=== PATIENT | male | born 1990 | race Caucasian/White ===

== ENCOUNTER 2017-10-28 14:15 | Emergency (ER) ==
[2017-10-28 15:24] VITALS: BP 136/95; TEMP 98.3; BMI 29.4
--- NOTE | 2017-10-28 15:31 | ED.PDOC ---
General ED Provider: Dr. CHINMAY WAYNE Chief Complaint: Alcohol/Substance Withdrawal Stated Complaint: Going through withdrawl from Clonazepam and Lorazepam. Is from [place] and is working for [employer] and [employer] -currently in [place] / Was close to running out and from [place] refused to refill over phone and due to. missing apt released him from her care. States has been on Suboxone program as well. States on day 6 of withdrawl but found a street lorazepam tablet to take. Had been on CLonazepam 2 mg bid and alprazolam 1 mg at HS. Wanting get into psychiatrist office to be placed on a tapering dose of Meds/ Time Seen by Physician: 15:00 Mode of Arrival: Walk-In Information Source: Patient Exam Limitations: No limitations Nursing and Triage Documentation Reviewed and Agree: Yes Does patient meet sepsis criteria?: No System Inflammatory Response Syndrome: Not Applicable Sepsis Protocol: For patient's 13 years and over: Temp is 96.8 and below OR 101 and greater Pulse >90 BPM Resp >20/minute Acutely Altered Mental Status Are patient's symptoms suggestive of a new infection, such as: -Pneumonia -Skin, Soft Tissue -Endocarditis -UTI -Bone, Joint Infection -Implantable Device -Acute Abdominal Infection -Wound Infection -Meningitis -Blood Stream Catheter Infection -Unknown Psychological Complaint Exam - Psychiatric Complaint/Exam Patient Complains Of: Present: Other (anxiety) Symptoms Are: Still present Timing: Intermittent Episodes Lasting: Hours (several) Initial Severity: Moderate Current Severity: Moderate Character: Present: Anxious Aggravating: Reports: Recent stress Associated Signs And Symptoms: Reports: Sleep disturbance Related History: Reports: Recent stressors. Denies: Suicidal thoughts, Suicidal plan, Suicidal gestures, Homicidal thoughts, Homicidal plan, Homicidal gestures, Prior attempts Completed Suicide Risk Factors: None Patient In Custody Of Police: No Social Withdrawal Present: No Social Isolation Present: No Prior Suicide Attempt: No Injury From Prior Suicide Attempt: No Patient Uncooperative For Exam: No Mood: Present: Anxious Appearance: Present: Clean Thought Process: Present: Logical Insight: Present: Good Memory: Intact Judgement: Normal Danger To Others: No Differential Diagnoses: Anxiety, Other (Benzodiazpine withdrawl) Review of Systems - Review Of Systems Constitutional: Reports: No symptoms Eyes: Reports: No symptoms Ears, Nose, Mouth, Throat: Reports: No symptoms Respiratory: Reports: No symptoms Cardiac: Reports: No symptoms GI: Reports: No symptoms : Reports: No symptoms Musculoskeletal: Reports: No symptoms Skin: Reports: No symptoms Neurological: Reports: No symptoms Endocrine: Reports: No symptoms Hematologic/Lymphatic: Reports: No symptoms All Other Systems: Reviewed and Negative Past Medical History - Past Medical History Previously Healthy: Yes Endocrine: Reports: None Cardiovascular: Reports: None Respiratory: Reports: None Hematological: Reports: None Gastrointestinal: Reports: None Genitourinary: Reports: None Neuro/Psych: Reports: None, Anxiety Musculoskeletal: Reports: None Cancer: Reports: None - Surgical History General Surgical History: Reports: None - Family History Family History: Reports: None - Social History Smoking Status: Current every day smoker, Heavy tobacco smoker Hx Substance Use: No Alcohol Screening: None Physical Exam - Physical Exam Appearance: Well-appearing, No pain distress, Well-nourished Eyes: LARRY, EOMI, Conjunctiva clear ENT: Ears normal, Nose normal, Oropharynx normal Respiratory: Airway patent, Breath sounds clear, Breath sounds equal, Respirations nonlabored Cardiovascular: RRR, Pulses normal, No rub, No murmur GI/: Soft, Nontender, No masses, Bowel sounds normal, No Organomegaly Musculoskeletal: Normal strength, ROM intact, No edema, No calf tenderness Skin: Warm, Dry, Normal color Neurological: Sensation intact, Motor intact, Reflexes intact, Cranial nerves intact, Alert, Oriented Psychiatric: Affect appropriate, Mood appropriate Critical Care Note - Critical Care Note Total Time (mins): 0 Course - Course Hematology/Chemistry: 10/28/17 15:41 10/28/17 15:41 Orders, Labs, Meds: Lab Review 10/28/17 10/28/17 10/28/17 15:41 15:41 15:59 WBC 9.83 RBC 6.00 Hgb 17.4 Hct 51.1 MCV 85.2 MCH 29.0 MCHC 34.1 RDW Coeff of Karina 12.7 Plt Count 211 Immature Gran % (Auto) 0.3 Neut % (Auto) 58.7 Lymph % (Auto) 31.3 [place] % (Auto) 7.1 Eos % (Auto) 2.1 Baso % (Auto) 0.5 Immature Gran # (Auto) 0.0 Neut # (Auto) 5.8 Lymph # (Auto) 3.1 [place] # (Auto) 0.7 Eos # (Auto) 0.2 Baso # (Auto) 0.1 Sodium 141.6 Potassium 3.59 Chloride 105.3 Carbon Dioxide 25.8 Anion Gap 14.09 BUN 14.8 Creatinine 0.99 Estimated GFR (MDRD) 91.00 BUN/Creatinine Ratio 14.94 Glucose 95.2 Calcium 9.44 Total Bilirubin 0.69 AST 25.9 ALT 15.9 Alkaline Phosphatase 64.6 Total Protein 8.11 Albumin 5.22 H Globulin 2.89 Albumin/Globulin Ratio 1.80 Urine Color Urine Clarity Urine pH Ur Specific Luna Urine Protein Urine Glucose (UA) Urine Ketones Urine Blood Urine Nitrite Urine Bilirubin Urine Urobilinogen Ur Leukocyte Esterase Urine Opiates Screen Positive Ur Oxycodone Screen Positive Urine Methadone Screen Negative Ur Propoxyphene Screen Negative Ur Barbiturates Screen Negative U Tricyclic Antidepress Negative Ur Phencyclidine Scrn Negative Ur Amphetamine Screen Negative U Methamphetamines Scrn Negative U Benzodiazepines Scrn Positive Urine Cocaine Screen Negative U Cannabinoids Screen Positive 10/28/17 15:59 WBC RBC Hgb Hct MCV MCH MCHC RDW Coeff of Karina Plt Count Immature Gran % (Auto) Neut % (Auto) Lymph % (Auto) [place] % (Auto) Eos % (Auto) Baso % (Auto) Immature Gran # (Auto) Neut # (Auto) Lymph # (Auto) [place] # (Auto) Eos # (Auto) Baso # (Auto) Sodium Potassium Chloride Carbon Dioxide Anion Gap BUN Creatinine Estimated GFR (MDRD) BUN/Creatinine Ratio Glucose Calcium Total Bilirubin AST ALT Alkaline Phosphatase Total Protein Albumin Globulin Albumin/Globulin Ratio Urine Color Yellow Urine Clarity Clear Urine pH 6.0 Ur Specific Luna 1.025 Urine Protein Negative Urine Glucose (UA) Negative Urine Ketones Negative Urine Blood Negative Urine Nitrite Negative Urine Bilirubin 1+ Urine Urobilinogen 0.2 Ur Leukocyte Esterase Negative Urine Opiates Screen Ur Oxycodone Screen Urine Methadone Screen Ur Propoxyphene Screen Ur Barbiturates Screen U Tricyclic Antidepress Ur Phencyclidine Scrn Ur Amphetamine Screen U Methamphetamines Scrn U Benzodiazepines Scrn Urine Cocaine Screen U Cannabinoids Screen Orders Category Date Time Status CBC W/ AUTO DIFF Stat LAB 10/28/17 15:41 Completed CMP [COMPREHENSIVE METABOLIC PANEL] Stat LAB 10/28/17 15:41 Completed DRUG SCREEN (RAPID FOR ED) [DRUG SCREEN, URINE, RAPID] LAB 10/28/17 15:59 Completed Stat URINALYSIS C & S IF INDICATED Stat LAB 10/28/17 15:59 Completed Clonazepam [Klonopin] MEDS 10/28/17 16:45 Stat 1 mg PO ONCE STA Ondansetron [Zofran Odt] MEDS 10/28/17 15:32 Discontinued 4 mg PO ONCE STA Medications Discontinued Medications Generic Name Dose Route Start Last Admin Trade Name Joie PRN Reason Stop Dose Admin Clonazepam 1 mg 10/28/17 16:45 Klonopin PO 10/28/17 16:46 ONCE STA Ondansetron HCl 4 mg 10/28/17 15:32 10/28/17 15:58 Zofran Odt PO 10/28/17 15:33 4 mg ONCE STA Administration Vital Signs: Temp Pulse Resp BP Pulse Ox 10/28/17 14:17 98.3 F 104 H 20 136/95 H 97 Departure - Departure Time of Disposition: 16:45 Disposition: HOME SELF-CARE Discharge Problem: Benzodiazepine withdrawal, Anxiety Instructions: Anxiety (ED), Mood Disorders (ED) Condition: Fair Pt referred to PMD for follow-up: Yes (select PCP for care/Discussed psychiatric services) IPMP verified?: Yes (No entry noted for [place]) Additional Instructions: Seek outpatient visit with provider as directed Prescriptions: Clonazepam 1 mg PO TID #15 tab.rapdis Allergies/Adverse Reactions: Allergies Penicillins Adverse Reaction (Verified 10/28/17 14:31) Sulfa (Sulfonamide Antibiotics) Adverse Reaction (Verified 10/28/17 14:31) Home Medications: Ambulatory Orders Clonazepam 1 mg PO TID #15 tab.rapdis 10/28/17 Disposition Discussed With: Patient
[2017-10-28] MEDS ORDERED: ZOFRAN ODT PO STA (15:32)
[2017-10-28] MEDS ORDERED: KLONOPIN PO STA (16:45)
== END 2017-10-28 17:22 | disposition home or self-care (01) ==
LOC: ED 14:15
DX: F13.20 Sedative, hypnotic or anxiolytic dependence, uncomplicated (principal); F41.9 Anxiety disorder, unspecified; F17.210 Nicotine dependence, cigarettes, uncomplicated
CPT/HCPCS: 36415; 80053; 80306; 81001; 85025; 99283